=== PATIENT | female | born 1980 ===

== ENCOUNTER 2017-03-09 07:15 | Day surgery (SDC) | payer BC ==
[2017-03-05 09:20] VITALS: BMI 32.4
[2017-03-09] MEDS ORDERED: Propofol 10 mg/ml Inj (20 ML) ONE (08:53)
[2017-03-09 09:26] VITALS: RESP 15
[2017-03-09] MEDS ORDERED: Sodium Chloride 0.9% 1,000 ML IV SCH (09:30)
[2017-03-09 10:20] VITALS: BP 100/63; PULSE 56; TEMP 97.7; O2SAT 97
== END 2017-03-09 10:40 | disposition home or self-care (01) ==
LOC: ENDO 07:15
PROVIDERS: ATTEND Internal Medicine Gastroenterology
DX: K25.9 Gastric ulcer, unspecified as acute or chronic, without hemorrhage or perforation (principal); K29.50 Unspecified chronic gastritis without bleeding; K29.80 Duodenitis without bleeding; I10 Essential (primary) hypertension
CPT/HCPCS: 43239; 88305; 88342; J2704; J7040

== ENCOUNTER 2017-05-25 08:15 | Day surgery (SDC) | payer BC ==
[2017-05-21 10:33] VITALS: BMI 31.8
[2017-05-25] MEDS ORDERED: Propofol 10 mg/ml Inj (20 ML) ONE (08:46)
[2017-05-25] MEDS ORDERED: Sodium Chloride 0.9% 1,000 ML IV SCH (09:45)
[2017-05-25 10:45] VITALS: BP 110/74; PULSE 53; RESP 15; TEMP 97.7; O2SAT 98
== END 2017-05-25 11:07 | disposition home or self-care (01) ==
LOC: ENDO 08:15
PROVIDERS: ATTEND Internal Medicine Gastroenterology
DX: K25.9 Gastric ulcer, unspecified as acute or chronic, without hemorrhage or perforation (principal); I10 Essential (primary) hypertension
CPT/HCPCS: 43235; 84703; J2704; J3010; J7040

== ENCOUNTER 2018-07-30 18:48 | Emergency (ER) | payer BC ==
[2018-07-30 18:49] VITALS: BMI 31.8
[2018-07-30 19:06] VITALS: RESP 18
--- NOTE | 2018-07-30 19:41 | ED PDOC ---
Arrival/HPI - General Time Seen by Provider: 07/30/18 19:03 Historian: Patient - History of Present Illness Narrative History of Present Illness (Text): 07/30/18 19:30 38 year old female, with no significant past medical history, presents to the Emergency Department complaining of chest pain since prior to arrival. Patient states she was walking her dog tonight when she experienced a sudden onset of left sided chest pain radiating to her left arm. Patient denies similar symptoms in the past prompting her to present to the Emergency Department for medical evaluation. Patient denies any other associated somatic complaints. Patient denies any fever, chills, nausea, vomiting, diarrhea, abdominal pain, shortness of breath, cough, headache, dizziness, neck pain, back pain, or any other complaints. Patient denies any family cardiac history. Patient denies smoking tobacco or any other risk factors. Time/Duration: Prior to Arrival Symptom Onset: Sudden Symptom Course: Unchanged Quality: Aching Activities at Onset: Light Context: Street Past Medical History - Provider Review Nursing Documentation Reviewed: Yes - Tetanus Immunization Tetanus Immunization: Up to Date - Cardiac Hx Pacemaker: No - Neurological Hx Paralysis: No - Hematological/Oncological Hx Blood Transfusions: No Hx Blood Transfusion Reaction: No - Musculoskeletal/Rheumatological Hx Musculoskeletal Disorders: No - Psychiatric Hx Emotional Abuse: No Hx Physical Abuse: No Hx Substance Use: No - Surgical History Hx Appendectomy: Yes Hx Cholecystectomy: Yes - Anesthesia Hx Anesthesia Reactions: No - Suicidal Assessment Feels Threatened In Home Enviroment: No Family/Social History - Physician Review Nursing Documentation Reviewed: Yes Family/Social History: No Known Family HX Hx Alcohol Use: Yes (SOCIAL) Hx Substance Use: No Hx Substance Use Treatment: No Allergies/Home Meds Allergies/Adverse Reactions: Allergies No Known Allergies Allergy (Verified 05/21/17 10:33) Home Medications: Home Meds Medication Instructions Recorded Confirmed hydroCHLOROthiazide [Hydrodiuril] 25 mg PO DAILY 03/05/17 05/25/17 metFORMIN [glucOPHAGE] 500 mg PO BID 03/05/17 05/25/17 Ranitidine HCl [Zantac 75] 75 mg PO 05/25/17 Review of Systems - Physician Review All systems were reviewed & negative as marked: Yes - Review of Systems Constitutional: absent: Fevers Respiratory: absent: SOB, Cough Cardiovascular: Chest Pain. absent: BARONE Gastrointestinal: absent: Abdominal Pain, Diarrhea, Nausea, Vomiting Genitourinary Female: absent: Dysuria, Urine Output Changes Musculoskeletal: absent: Back Pain, Neck Pain Neurological: absent: Headache, Dizziness Physical Exam Vital Signs Reviewed: Yes Vital Signs Temp Pulse Resp BP Pulse Ox 07/30/18 18:49 97.9 F 61 18 111/75 96 Temperature: Afebrile Blood Pressure: Normal Pulse: Regular Respiratory Rate: Normal Appearance: Positive for: Well-Appearing, Non-Toxic, Comfortable Pain Distress: None Mental Status: Positive for: Alert and Oriented X 3 - Systems Exam Head: Present: Atraumatic, Normocephalic Pupils: Present: PERRL Extroacular Muscles: Present: EOMI Conjunctiva: Present: Normal Mouth: Present: Moist Mucous Membranes Neck: Present: Normal Range of Motion Respiratory/Chest: Present: Clear to Auscultation, Good Air Exchange. No: Respiratory Distress, Accessory Muscle Use Cardiovascular: Present: Regular Rate and Rhythm, Normal S1, S2. No: Murmurs Abdomen: No: Tenderness, Distention, Peritoneal Signs Back: Present: Normal Inspection Upper Extremity: Present: Normal Inspection. No: Cyanosis, Edema Lower Extremity: Present: Normal Inspection. No: Edema Neurological: Present: GCS=15, CN II-XII Intact, Speech Normal Skin: Present: Warm, Dry, Normal Color. No: Rashes Psychiatric: Present: Alert, Oriented x 3, Normal Insight, Normal Concentration Medical Decision Making ED Course and Treatment: 07/30/18 19:46 Impression: 38 year old female presents to the Emergency Department complaining of chest pain. Differential Diagnosis included but are not limited to: Chest pain r/o ACS vs. musculoskeletal Plan: -- Chest X-ray -- Labs -- EKG -- Urinalysis -- Reassess and disposition Prior Visits: Notes and results from previous visits were reviewed. pt feels better ct neg no cardiac risk factors will dc - EKG Interpretation EKG Interpretation (Text): 07/31/18 04:00 nsr rate 65 normal ekg BAILEY Risk Score for UA/NSTEMI - BAILEY Risk Score Age > 64: NO 3 or more CAD Risk Factors: NO Known CAD (Stenosis greater than 50%): NO Aspirin use in past 7 days: NO Severe Angina: NO EKG ST changes greater than 0.5mm: NO Positive Cardiac Marker: NO BAILEY Score: 0 % risk at 14 days of: all cause mortality, new or recurrent SC, or severe recurrent ischemia requiring urgen revascularization: 5% - Scribe Statement The provider has reviewed the documentation as recorded by the Allisonibshelley Aguilar. All medical record entries made by the Allisonibe were at my direction and personally dictated by me. I have reviewed the chart and agree that the record accurately reflects my personal performance of the history, physical exam, [facility] decision making, and the department course for this patient. I have also personally directed, reviewed, and agree with the discharge instructions and disposition. Disposition/Present on Arrival - Present on Arrival Any Indicators Present on Arrival: No History of DVT/PE: No History of Uncontrolled Diabetes: No Urinary Catheter: No History Surgical Site Infection Following: None - Disposition Have Diagnosis and Disposition been Completed?: Yes Diagnosis: Chest pain Disposition: HOME/ ROUTINE Disposition Time: 23:30 Condition: GOOD Discharge Instructions (ExitCare): Chest Pain, Chest Pain (ED) Additional Instructions: follow up with pmd for out pt work up Referrals: Vin Simon DO [Primary Care Provider] - Follow up with primary Forms: WORK NOTE
[2018-07-30 20:45] VITALS: TEMP 97.8
[2018-07-30 20:48] LABS: PH,URINE 6.5 (4.7-8.0); URINE BILIRUBIN NEGATIVE (NEGATIVE); URINE BLOOD SMALL (NEGATIVE); URINE GLUCOSE (UA) NEGATIVE (NEGATIVE); URINE LEUKOCYTE ESTERASE LARGE Leu/uL (NEGATIVE); URINE PROTEIN NEGATIVE mg/dL (<30 mg/dL); URINE UROBILINOGEN 0.2 E.U./dL (<1 E.U./dL)
[2018-07-30 20:50] LABS: ALB/GLOB RATIO 1.2 (1.1-1.8); ALBUMIN 4.6 g/dL (3.0-4.8); ALT/SGPT 41 U/L (7-56); AST/SGOT 37 U/L (14-36); BLOOD UREA NITROGEN 24 mg/dL (7-21); CALCIUM 9.4 mg/dL (8.4-10.5); GFR NON-AFRICAN AMERICAN > 60
[2018-07-30 20:51] LABS: URINE APPEARANCE CLEAR (CLEAR); URINE COLOR YELLOW (YELLOW)
[2018-07-30 20:59] LABS: BASO # 0.03 K/mm3 (0.0-2.0); BASO % 0.3 % (0.0-3.0); EOS # 0.2 (0.0-0.7); EOS % 2.5 % (1.5-5.0); GRAN # 4.81 (1.4-6.5); GRAN % 50.9 % (50.0-68.0); HEMOGLOBIN 13.3 g/dL (12.0-16.0); LYMPH # 3.6 (1.2-3.4); LYMPH % 38.1 % (22.0-35.0); MEAN CELL VOLUME 80.3 fl (80.0-105.0); MEAN CORPUSCULAR HEMOGLOBIN 25.9 pg (25.0-35.0); MEAN CORPUSCULAR HGB CONC 32.3 g/dl (31.0-37.0); MEAN PLATELET VOLUME 9.5 fl (7.0-11.0); MONO # 0.8 (0.1-0.6); MONO % 8.2 % (1.0-6.0); RBC 5.13 10^6/uL (3.5-6.1); RED CELL DISTRIBUTION WIDTH 14.5 % (11.5-14.5); WHITE BLOOD COUNT 9.5 10^3/ul (4.5-11.0)
[2018-07-30 21:02] LABS: B-TYPE NATRIURETIC PEPTIDE 66.7 pg/mL (0-450); TROPONIN I < 0.01 ng/mL
[2018-07-30 21:19] LABS: URINE BACTERIA MANY (NEG); URINE WBC 25 - 30 /hpf (0-6)
[2018-07-30] MEDS ORDERED: Iodixanol 320 MG/ML 100 ML BOTTLE IV ONE (22:09)
[2018-07-30 23:38] VITALS: PULSE 61; O2SAT 95
[2018-07-30 23:54] VITALS: BP 107/69
--- NOTE | 2018-07-31 08:06 | CT ---
Date of service: 07/30/2018 PROCEDURE: CT Chest with contrast (Pulmonary Angiogram) HISTORY: Chest pain, shortness of breath and elevated D-dimer COMPARISON: None available. TECHNIQUE: Axial computed tomography images were obtained of the chest in the pulmonary arterial phase of enhancement. Coronal and sagittal reformatted images were created and reviewed. Intravenous contrast dose: 75 cc Visipaque 320 Mean Hounsfield value in the main pulmonary artery: 395.46 Radiation dose: Total exam DLP = 378.05 mGy-cm. This CT exam was performed using one or more of the following dose reduction techniques: Automated exposure control, adjustment of the mA and/or kV according to patient size, and/or use of iterative reconstruction technique. FINDINGS: PULMONARY ARTERIES: Unremarkable. No pulmonary embolism. AORTA: No acute findings. No thoracic aortic aneurysm. LUNGS: Unremarkable. No nodule, mass or pulmonary consolidation. PLEURAL SPACES: Unremarkable. No effusion or pneumothorax. HEART: Unremarkable. No cardiomegaly. No significant pericardial effusion. LYMPH NODES: No lymphadenopathy. BONES, CHEST WALL: Unremarkable. No fracture or destructive lesion OTHER FINDINGS: Unremarkable. IMPRESSION: Unremarkable CT pulmonary angiogram. No pulmonary embolus. Concordant results (preliminary interpretation) provided by [employer]. Procedure Completed: 22:28 Preliminary Report: Dictated and Authenticated: 22:48. Final Interpretation: 08:02. July 31, 2018
--- NOTE | 2018-07-31 08:42 | RAD ---
Date of service: 07/30/2018 HISTORY: cp COMPARISON: No prior. FINDINGS: LUNGS: No active pulmonary disease. PLEURA: No significant pleural effusion identified, no pneumothorax apparent. CARDIOVASCULAR: Normal. OSSEOUS STRUCTURES: No significant abnormalities. VISUALIZED UPPER ABDOMEN: Normal. OTHER FINDINGS: None. IMPRESSION: No active disease.
--- NOTE | 2018-07-31 09:15 | CARD ---
APPROVED REPORT Date of service: 07/30/2018 EKG Measurement Heart [id number] VT [id number] <Conclusion> Normal sinus rhythm Normal ECG
== END 2018-07-30 23:45 | disposition home or self-care (01) ==
LOC: ED 18:48
DX: R07.9 Chest pain, unspecified (principal)
CPT/HCPCS: 71045; 71275; 80053; 81001; 82550; 83615; 83735; 83880; 84484; 85025; 85378; 87086; 93005; 99283; Q9967